=== PATIENT | female | born 1965 | race Asian ===

== ENCOUNTER 2018-03-05 12:29 | Day surgery (SDC) | payer OTHER ==
[2018-03-05] MEDS ORDERED: PROPOFOL 20 ML (15:10)
== END 2018-03-05 19:11 | disposition home or self-care (01) ==
LOC: GIL 12:29
DX: Z12.11 Encounter for screening for malignant neoplasm of colon (principal)
CPT/HCPCS: 45378

== ENCOUNTER 2019-05-27 20:55 | Emergency (ER) | payer OTHER | END 2019-05-27 23:23 | disposition home or self-care (01) | LOC: FTE 20:55 | DX: R05 Cough (principal) | CPT/HCPCS: 71045; 99283-25 ==